=== PATIENT | female | born 1935 | race Caucasian/White ===

== ENCOUNTER 2017-08-09 18:53 | Emergency (ER) | payer OTHER, MEDICARE ==
[2017-08-09 19:04] VITALS: PULSE 73; BMI 32.0
--- NOTE | 2017-08-09 19:35 | PDOC ---
History of Present Illness - General History Source: Patient Exam Limitations: No Limitations - History of Present Illness Initial Comments: 08/09/17 20:04 The patient is a 82-year-old female BIBA with a significant past medical history of HLD, COPD, hypothyroidism, and Alzheimers, who presents to the emergency department with generalized weakness and altered mental status for the last few weeks. The patient lives at home and presents with her daughter and home health aide. Daughter states that patient has been more somnolent than baseline for the last few weeks, and was unresponsive tonight. Daughter reports that they can usually get the patient up and out of the house, but has been unable to do so recently. She also reports she saw her hand shaking tonight and became concerned. History is limited and obtained through medical records and daughters reports, as the patient is unresponsive to commands upon interview. Denies fever, chills, nausea, vomit, diarrhea. Denies chest pain, shortness of breath, dizziness, or urinary changes. Allergies: penicillins Social History: former smoker PCP: Dr. Sweeney <Suzan Stiles - Last Filed: 08/09/17 22:57> <Rachelle Carrillo - Last Filed: 08/10/17 06:24> - General Chief Complaint: Altered Mental Status Stated Complaint: Lethargy Time Seen by Provider: 08/09/17 19:34 Past History <Suzan Stiles - Last Filed: 08/09/17 22:57> - Past Medical History COPD: Yes Dementia: Yes (alzheimers) Hypercholesterolemia: Yes - Suicide/Smoking/Psychosocial Hx Smoking History: Former smoker Have you smoked in the past 12 months: No If you are a former smoker, when did you quit?: many years ago Information on smoking cessation initiated: No Hx Alcohol Use: No Drug/Substance Use Hx: No Substance Use Type: None <Rachelle Carrillo - Last Filed: 08/10/17 06:24> - Past Medical History Allergies/Adverse Reactions: Allergies Allergy/AdvReac Type Severity Reaction Status Date / Time Penicillins Allergy Verified 09/20/16 13:07 Home Medications: Ambulatory Orders Levetiracetam 750 mg PO BID 06/18/15 Divalproex [Depakote -] 125 mg PO BID 08/09/17 Escitalopram Oxalate [Lexapro -] 10 mg PO DAILY 08/09/17 Levothyroxine [Synthroid -] 75 mcg PO DAILY 08/09/17 Quetiapine Fumarate [Seroquel -] 50 mg PO BID 08/09/17 Sennosides [Senna] 8.6 mg PO DAILY 08/09/17 Review of Systems - Review of Systems Able to Perform ROS?: No (unresponsive to commands) <Suzan Stiles - Last Filed: 08/09/17 22:57> *Physical Exam - Vital Signs Last Vital Signs Temp Pulse Resp BP Pulse Ox 73 20 144/60 93 L 08/09/17 19:02 08/09/17 19:02 08/09/17 19:02 08/09/17 19:02 - Physical Exam Comments: 08/09/17 20:04 GENERAL: Not responding to commands, eyes are closed, in no acute distress. Afebrile. HEAD: No signs of trauma EYES: PERRLA, EOMI, sclera anicteric, conjunctiva clear ENT: Auricles normal inspection, hearing grossly normal, nares patent, Moist mucosa NECK: Normal ROM, supple, no lymphadenopathy, JVD, or masses HEART: Regular rate and rhythm, normal S1 and S2, no murmurs, rubs or gallops ABDOMEN: Soft, nontender, normoactive bowel sounds. No guarding, no rebound. No masses EXTREMITIES: No pitting edema. Good peripheral pulses. No clubbing or cyanosis. No cords, erythema, or tenderness. (+) Muscles are stiff. NEUROLOGICAL: Cranial nerves II through XII grossly intact. SKIN: Warm, Dry, normal turgor, no rashes or lesions noted. <Suzan Stiles - Last Filed: 08/09/17 22:57> - Vital Signs Last Vital Signs Temp Pulse Resp BP Pulse Ox 73 20 144/60 93 L 08/09/17 19:02 08/09/17 19:02 08/09/17 19:02 08/09/17 19:02 <Rachelel Carrillo - Last Filed: 08/10/17 06:24> ED Treatment Course - LABORATORY CBC & Chemistry Diagram: 08/09/17 Unknown 08/09/17 Unknown - RADIOLOGY Radiograph Interpretation: 08/09/17 22:58 Patient Name: KANWAL BRAND THIS IS A PRELIMINARY REPORT FROM [facility] DATE OF SERVICE: 2017-08-09 21:12:43 IMAGES: 294 EXAM: CT head without contrast HISTORY: Lethargic COMPARISON: None. FINDINGS: 1. There is no evidence of an acute intracranial process, intracranial hemorrhage or mass effect. 2. Ventricular size is concordant with the degree of atrophy. 3. The visualized portions of the orbits, paranasal and mastoid sinuses are unremarkable. <Suzan Stiles - Last Filed: 08/09/17 22:57> - LABORATORY CBC & Chemistry Diagram: 08/09/17 Unknown 08/09/17 Unknown <Rachelle Carrillo - Last Filed: 08/10/17 06:24> Medical Decision Making - Medical Decision Making 08/10/17 01:26 Patient Name: KANWAL BRAND THIS IS A PRELIMINARY REPORT FROM [facility] DATE OF SERVICE: 2017-08-09 19:46:22 IMAGES: 2 EXAM: XR CHEST single view HISTORY: Cough and weakness COMPARISON: None. FINDINGS: Heart and mediastinal contours: Normal Lungs: Clear with no areas of consolidation Pleura: No pneumothorax or pleural effusion Chest Wall: Normal 08/10/17 06:20 Labs normal; TSH, depakote level, chemistry and cbc all normal. Pt has a clear CXR; pt had elevated mono; monoscreen sent. WIll not return until tomorrow or day after. Pt's PM Zahra will follow her in the office I spoke to Jhoana regarding the patient; he agrees that pt is stable to go home with daughter and HHAide <Rachelle Carrillo - Last Filed: 08/10/17 06:24> *DC/Admit/Observation/Transfer - Attestations Scribe Attestion: 08/09/17 20:05 Documentation prepared by Suzan Stiles, acting as medical supervisor for Rachelle Carrillo MD/DO. <Suzan Stiles - Last Filed: 08/09/17 22:57> - Discharge Dispostion Admit: No <Rachelle Carrillo - Last Filed: 08/10/17 06:24> Diagnosis at time of Disposition: Generalized weakness - Discharge Dispostion Disposition: HOME Condition at time of disposition: Stable - Referrals Referrals: Cruz Sweeney MD [Primary Care Provider] - - Patient Instructions Printed Discharge Instructions: DI for Fatigue, Alzheimer's Disease: Tips for Caretakers, DI for Muscle Weakness
[2017-08-09 20:23] LABS: BASOPHIL 1.1 % (0-2.0); EOSINOPHIL 2.2 % (0-4.5); MEAN CELL VOLUME 90.8 fl (80-96); MEAN PLT VOLUME 8.3 fl (7.5-11.1); NEUTROPHILS 53.6 % (42.8-82.8); PLATELET COUNT 265 K/MM3 (134-434); RDW 14.7 % (11.6-15.6); WHITE BLOOD COUNT 5.3 K/mm3 (4.0-10.0)
[2017-08-09 20:53] LABS: ALBUMIN 3.1 g/dl (3.4-5.0); ANION GAP 6 (8-16); CALCIUM 8.9 mg/dL (8.5-10.1); CO2 29 mmol/L (21-32); CREATININE 0.6 mg/dL (0.55-1.02); GLUCOSE,RANDOM 95 mg/dL (74-106); SGOT/AST 13 U/L (15-37); SGPT/ALT 12 U/L (12-78)
[2017-08-09 20:55] LABS: ALK PHOS 48 U/L (45-117); BILIRUBIN,TOTAL 0.5 mg/dL (0.2-1.0); TOT PROT 6.5 g/dl (6.4-8.2)
[2017-08-09 22:44] LABS: URINE APPEARANCE CLEAR; URINE BILIRUBIN NEGATIVE (NEGATIVE); URINE BLOOD NEGATIVE (NEGATIVE); URINE COLOR DKYELLOW; URINE GLUCOSE (UA) NEGATIVE (NEGATIVE); URINE KETONE NEGATIVE (NEGATIVE); URINE NITRITE NEGATIVE (NEGATIVE); URINE PROTEIN NEGATIVE (NEGATIVE)
[2017-08-10] VITALS: BP 121/70
[2017-08-10] MEDS ORDERED: ALBUTEROL SO4 2.5/IPRATROPIUM 0.5 INH SOL 3 ML VIAL.NEB. NEB ONE (00:30)
[2017-08-10] MEDS ORDERED: FLU VACCINE QUAD 60 MCG/0.5 ML (MDV 17-18) IM ONE (02:36)
[2017-08-10 16:41] LABS: URINE LEUK ESTERASE Negative (NEGATIVE)
--- NOTE | 2017-08-11 17:34 | PDOC ---
Patient Follow-up (Call Back) - Post ED Follow - Up Condition at time of discharge: Stable Disposition at time of original discharge: HOME Reason for Call Back: Abnwl. Microbiology (gram positive cocci in clusters anaerobic bottle, pending organism. awaiting the final report.)
--- NOTE | 2017-08-12 11:38 | EKG ---
Test Reason : Blood Pressure : / mmHG Vent. Rate : 081 BPM Atrial Rate : 081 BPM P-R Int : 146 ms QRS Dur : 128 ms QT Int : 400 ms P-R-T Axes : 036 051 019 degrees QTc Int : 464 ms POOR DATA QUALITY, INTERPRETATION MAY BE ADVERSELY AFFECTED NORMAL SINUS RHYTHM RIGHT BUNDLE BRANCH BLOCK CANNOT RULE OUT INFERIOR INFARCT , AGE UNDETERMINED ABNORMAL ECG WHEN COMPARED WITH ECG OF 18-JUN-2015 18:53, MINIMAL CRITERIA FOR INFERIOR INFARCT ARE NOW PRESENT Confirmed by REI PETERS, MANI ([id number]) on 08/12/2017 11:38:28 AM Referred By: Confirmed By:MANI MINAYA MD
--- NOTE | 2017-08-13 08:09 | PDOC ---
Patient Follow-up (Call Back) - Post ED Follow - Up Condition at time of discharge: Stable Disposition at time of original discharge: HOME Reason for Call Back: Abnwl. Microbiology (Patient's blood culture preliminary shows staphylococcal coagulase negative. will await final report.)
== END 2017-08-10 02:54 | disposition home or self-care (01) ==
LOC: JER 18:53
PROC: 3E0F7GC Introduction of Other Therapeutic Substance into Respiratory Tract, Via Natural or Artificial Opening (ICD-10-PCS; principal; 2017-08-09)
PROC: 3E0234Z Introduction of Serum, Toxoid and Vaccine into Muscle, Percutaneous Approach (ICD-10-PCS; 2017-08-09)
DX: R53.1 Weakness (principal); E03.9 Hypothyroidism, unspecified; J44.9 Chronic obstructive pulmonary disease, unspecified; E78.00 Pure hypercholesterolemia, unspecified; G30.9 Alzheimer's disease, unspecified; F02.80 Dementia in other diseases classified elsewhere, unspecified severity, without behavioral disturbance, psychotic disturbance, mood disturbance, and anxiety; Z87.891 Personal history of nicotine dependence
CPT/HCPCS: 36415; 70450-TC; 71010-TC; 80053; 80164; 81003; 84443; 85025; 86308; 87040; 87086; 90471; 90688; 93005; 93010; 94640; 99283-25

== ENCOUNTER 2017-08-27 18:35 | Inpatient (IN) | payer OTHER, MEDICARE ==
--- NOTE | 2017-08-27 19:15 | PDOC ---
History of Present Illness - History of Present Illness Initial Comments: 08/27/17 21:05 The patient is an 82 year old female, with a significant past medical history of stage Alzheimer's and hypothyroidism, who was BIBA to the emergency department for fluid-filled boil on her right forearm. Patient came in with daughter who wanted her mother to become evaluated for placement since its getting more difficult for her to be cared for at home. She was recently here on 08/06 for being unresponsive to verbal commands, but it was found to be due to her deteriorating mental condition. Patients daughter also states that her mother is no longer able to ambulate to the bathroom with assistance and is wearing diapers. She is currently bed-bound. Her daughter was told by her moms aide that she noticed a fluid-filled boil on her right forearm. She denies recent fevers, chills, headache or dizziness. She denies recent nausea, vomit, diarrhea or constipation. She denies recent dysuria, frequency, urgency or hematuria. She denies recent chest pain or shortness of breath. Allergies: penicillins Past surgical history: None reported. Social history: Nonsmoker. Denies EtOH use and recreational drug use. Primary Care Physician: Cruz Sweeney <Elen Wright - Last Filed: 08/27/17 22:19> <Gregoria Delgadillo - Last Filed: 08/27/17 23:00> - General Chief Complaint: Abscess Boil Stated Complaint: INFECTION Time Seen by Provider: 08/27/17 18:44 Past History <Elen Wright - Last Filed: 08/27/17 22:19> - Past Medical History COPD: Yes Dementia: Yes (alzheimers) Hypercholesterolemia: Yes - Suicide/Smoking/Psychosocial Hx Smoking History: Former smoker Have you smoked in the past 12 months: No If you are a former smoker, when did you quit?: many years ago Information on smoking cessation initiated: No Hx Alcohol Use: No Drug/Substance Use Hx: No Substance Use Type: None <Gregoria Delgadillo - Last Filed: 08/27/17 23:00> - Past Medical History Allergies/Adverse Reactions: Allergies Allergy/AdvReac Type Severity Reaction Status Date / Time Penicillins Allergy Verified 09/20/16 13:07 Home Medications: Ambulatory Orders Levetiracetam 750 mg PO BID 06/18/15 Divalproex [Depakote -] 125 mg PO BID 08/09/17 Escitalopram Oxalate [Lexapro -] 10 mg PO DAILY 08/09/17 Levothyroxine [Synthroid -] 75 mcg PO DAILY 08/09/17 Quetiapine Fumarate [Seroquel -] 50 mg PO BID 08/09/17 Sennosides [Senna] 8.6 mg PO DAILY 08/09/17 Review of Systems - Review of Systems Able to Perform ROS?: No (limited due to ams) Comments:: 08/27/17 21:05 CONSTITUTIONAL: Absent: fever, chills, diaphoresis, generalized weakness, malaise, loss of appetite HEENT: Absent: rhinorrhea, nasal congestion, throat pain, throat swelling, difficulty swallowing, mouth swelling, ear pain, eye pain, visual Changes CARDIOVASCULAR: Absent: chest pain, syncope, palpitations, irregular heart rate, lightheadedness , peripheral edema RESPIRATORY: Absent: cough, shortness of breath, dyspnea with exertion, orthopnea, wheezing, stridor, hemoptysis GASTROINTESTINAL: Absent: abdominal pain, abdominal distension, nausea, vomiting, diarrhea, constipation, melena, hematochezia GENITOURINARY: Absent: dysuria, frequency, urgency, hesitancy, hematuria, flank pain, genital pain MUSCULOSKELETAL: Absent: myalgia, arthralgia, joint swelling SKIN: Present: fluid-filled boil on right forearm Absent: rash, itching, pallor HEMATOLOGIC/IMMUNOLOGIC: Present: easy bruises Absent: easy bleeding, easy bruising, lymphadenopathy, frequent infections ENDOCRINE: Absent: unexplained weight gain, unexplained weight loss, heat intolerance, cold intolerance NEUROLOGIC: Present: progressive degenerative neurological deficits. Unable to ambulate. Nonverbal. Absent: headache, focal weakness or paresthesias, dizziness, seizure, bladder or bowel incontinence PSYCHIATRIC: Absent: anxiety, depression, suicidal or homicidal ideation, hallucinations. 08/27/17 21:13 <Elen Wright - Last Filed: 08/27/17 22:19> *Physical Exam - Vital Signs Last Vital Signs Temp Pulse Resp BP Pulse Ox 98.1 F 82 16 116/65 93 L 08/27/17 18:55 08/27/17 18:55 08/27/17 18:55 08/27/17 18:55 08/27/17 18:55 - Physical Exam Comments: 08/27/17 21:12 GENERAL: Nonverbal. Well developed, well nourished. Awake and alert. No acute distress. HEENT: Normocephalic, atraumatic. PERRLA, EOMI. No conjunctival pallor. Sclera are non- icteric. Moist mucous membranes. Oropharynx is clear. NECK: Supple. Full ROM. No JVD. Carotid pulses 2+ and symmetric, without bruits. No thyromegaly. No lymphadenopathy. CARDIOVASCULAR: Regular rate and rhythm. No murmurs, rubs, or gallops. Distal pulses are 2+ and symmetric. PULMONARY: Fine basal rales. No evidence of respiratory distress. No wheezing, or rhonchi. ABDOMINAL: Soft. Non-tender. Non-distended. No rebound or guarding. No organomegaly. Normoactive bowel sounds. MUSCULOSKELETAL Normal range of motion at all joints. No bony deformities or tenderness. No CVA tenderness. EXTREMITIES: 2 fluid-filled caro on right forearm. Rash on right forearm. Old bruises on lower extremities. No cyanosis. No clubbing. No edema. No calf tenderness. SKIN: Warm and dry. Normal capillary refill. No rashes. No jaundice. NEUROLOGICAL: Nonverbal. Bedbound. Unable to ambulate. Progressive degenerative neurological deficits from Alzeimer's. PSYCHIATRIC: Cooperative. Good eye contact. Appropriate mood and affect. <Elen Wright - Last Filed: 08/27/17 22:19> - Vital Signs Last Vital Signs Temp Pulse Resp BP Pulse Ox 98.1 F 82 16 116/65 93 L 08/27/17 18:55 08/27/17 18:55 08/27/17 18:55 08/27/17 18:55 08/27/17 18:55 <Gregoria Delgadillo - Last Filed: 08/27/17 23:00> Heart Score/ECG Review - ECG Intrepretation Comment:: 08/27/17 20:04:21 EKG Interpretation: Normal sinus rhythm Right bundle branch blocl Abnormal ECG Vent rate: 81 bpm <Elen Wright - Last Filed: 08/27/17 22:19> ED Treatment Course - LABORATORY CBC & Chemistry Diagram: 08/27/17 19:42 08/27/17 19:42 - ADDITIONAL ORDERS Additional order review: Laboratory Results 08/27/17 08/27/17 19:42 19:42 PT with INR 11.70 INR 1.04 PTT (Actin FS) 31.8 Sodium 142 Potassium 4.2 Chloride 106 Carbon Dioxide 29 Anion Gap 7 L BUN 10 Creatinine 0.7 Creat Clearance w eGFR > 60 Random Glucose 105 Calcium 8.8 Total Bilirubin 0.4 AST 18 D ALT 23 D Alkaline Phosphatase 56 Total Protein 6.3 L Albumin 2.8 L 08/27/17 19:42 RBC 4.83 MCV 91.8 MCHC 32.3 RDW 14.5 MPV 8.0 Neutrophils % 50.6 Lymphocytes % 32.5 Monocytes % 14.2 H Eosinophils % 1.8 Basophils % 0.9 <Elen Wright - Last Filed: 08/27/17 22:19> - LABORATORY CBC & Chemistry Diagram: 08/27/17 19:42 08/27/17 19:42 <Gregoria Delgadillo - Last Filed: 08/27/17 23:00> *DC/Admit/Observation/Transfer - Attestations Scribe Attestion: 08/27/17 21:21 Documentation prepared by Elen Wright, acting as biomedical analytical scientist for Gregoria Delgadillo MD. <Elen Wright - Last Filed: 08/27/17 22:19> - Discharge Dispostion Admit: Yes <Gregoria Delgadillo - Last Filed: 08/27/17 23:00> Diagnosis at time of Disposition: Generalized weakness, Cannot walk UTI (urinary tract infection) Qualifiers: Urinary tract infection type: site unspecified Hematuria presence: without hematuria Qualified Code(s): N39.0 - Urinary tract infection, site not specified Dementia Qualifiers: Dementia type: unspecified type Dementia behavioral disturbance: without behavioral disturbance Qualified Code(s): F03.90 - Unspecified dementia without behavioral disturbance Urinary bladder incontinence Qualifiers: Urinary Incontinence type: unspecified incontinence Qualified Code(s): R32 - Unspecified urinary incontinence - Referrals Referrals: Cruz Sweeney MD [Primary Care Provider] - - Patient Instructions - Post Discharge Activity
[2017-08-27 20:11] LABS: BASOPHIL 0.9 % (0-2.0); EOSINOPHIL 1.8 % (0-4.5); MCH 29.6 pg (25.7-33.7); MCHC 32.3 g/dl (32.0-36.0); MEAN CELL VOLUME 91.8 fl (80-96); NEUTROPHILS 50.6 % (42.8-82.8); PLATELET COUNT 310 K/MM3 (134-434); RDW 14.5 % (11.6-15.6); WHITE BLOOD COUNT 5.7 K/mm3 (4.0-10.0)
[2017-08-27 20:32] LABS: INR 1.04 (0.82-1.09); PROTHROMBIN TIME (PATIENT) 11.7 SEC (9.98-11.88)
[2017-08-27 20:35] LABS: ACTIVATED PTT 31.8 SECONDS (26.9-34.4)
[2017-08-27 20:42] LABS: ALBUMIN 2.8 g/dl (3.4-5.0); ANION GAP 7 (8-16); CALCIUM 8.8 mg/dL (8.5-10.1); CO2 29 mmol/L (21-32); CREATININE 0.7 mg/dL (0.55-1.02); GLUCOSE,RANDOM 105 mg/dL (74-106); SGOT/AST 18 U/L (15-37)
[2017-08-27 20:44] LABS: ALK PHOS 56 U/L (45-117); BILIRUBIN,TOTAL 0.4 mg/dL (0.2-1.0); SGPT/ALT 23 U/L (12-78); TOT PROT 6.3 g/dl (6.4-8.2)
[2017-08-27 21:28] LABS: URINE APPEARANCE CLOUDY; URINE BILIRUBIN NEGATIVE (NEGATIVE); URINE BLOOD NEGATIVE (NEGATIVE); URINE COLOR AMBER; URINE GLUCOSE (UA) NEGATIVE (NEGATIVE); URINE KETONE TRACE (NEGATIVE); URINE NITRITE NEGATIVE (NEGATIVE)
[2017-08-27 21:30] LABS: URINE PROTEIN 1+ (NEGATIVE)
[2017-08-27 21:32] LABS: URINE BACTERIA RARE /hpf (NONE SEEN); URINE MUCUS MANY; URINE RBC 4 /hpf (0-3); URINE WBC 11 /hpf (3-5); YEAST FEW
[2017-08-27 22:39] LABS: URINE LEUK ESTERASE TRACE (NEGATIVE)
[2017-08-28 03:55] VITALS: BMI 23.8
[2017-08-28] MEDS ORDERED: ACETAMINOPHEN 325 MG TABLET (FP) PO PRN (06:19)
[2017-08-28] MEDS: LEVOFLOXACIN 250 MG IVPB 250 MG/50 ML MG IVPB SCH (06:56)
[2017-08-28] MEDS: LEVOTHYROXINE NA 75 MCG TABLET (FP) PO SCH (06:58)
[2017-08-28 08:46] LABS: THYROID STIMULATING HORMONE 5.24 uIU/ml (0.358-3.74)
--- NOTE | 2017-08-28 10:23 | EKG ---
Test Reason : Blood Pressure : / mmHG Vent. Rate : 081 BPM Atrial Rate : 081 BPM P-R Int : 130 ms QRS Dur : 126 ms QT Int : 412 ms P-R-T Axes : 036 058 058 degrees QTc Int : 478 ms POOR DATA QUALITY, INTERPRETATION MAY BE ADVERSELY AFFECTED NORMAL SINUS RHYTHM RIGHT BUNDLE BRANCH BLOCK ABNORMAL ECG WHEN COMPARED WITH ECG OF 09-AUG-2017 21:45, MINIMAL CRITERIA FOR INFERIOR INFARCT ARE NO LONGER PRESENT Confirmed by MANI MINAYA MD ([id number]) on 08/28/2017 10:23:00 AM Referred By: Confirmed By:MANI MINAYA MD
[2017-08-28] MEDS: QUEtiapine FUMARATE 50 MG TABLET PO SCH ×2 (11:04→22:04)
[2017-08-28] MEDS: ESCITALOPRAM OXALATE 10 MG TABLET (FP) PO SCH (11:04)
[2017-08-28] MEDS: HEPARIN NA (PORCINE) 5,000 UNITS/ML 1ML VIAL SQ SCH ×2 (11:04→22:05)
[2017-08-28] MEDS: levETIRAcetam 250 MG TABLET (FP) PO SCH ×2 (11:04→22:05)
[2017-08-28] MEDS: DIVALPROEX SODIUM 125 MG TABLET E.C. (FP) PO SCH ×2 (11:05→22:04)
--- NOTE | 2017-08-28 11:31 | HP ---
Admitting History and Physical - Primary Care Physician PCP: Cruz Sweeney - Admission Chief Complaint: WORSENING DEMENTIA/ALTERED METAL STATUS/CELLULITIS RIGHT FOREARM History of Present Illness: The patient is an 82 year old female, with a significant past medical history of stage Alzheimer's and hypothyroidism, who was BIBA to the emergency department for fluid-filled boil on her right forearm. Patient came in with daughter who wanted her mother to become evaluated for placement since its getting more difficult for her to be cared for at home. She was recently here on 08/06 for being unresponsive to verbal commands, but it was found to be due to her deteriorating mental condition. Patients daughter also states that her mother is no longer able to ambulate to the bathroom with assistance and is wearing diapers. She is currently bed-bound. Her daughter was told by her moms aide that she noticed a fluid-filled boil on her right forearm. 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 - Smoking History Smoking history: Former smoker Have you smoked in the past 12 months: No If you are a former smoker, when did you quit?: many years ago - Alcohol/Substance Use Hx Alcohol Use: No Home Medications - Allergies Allergies/Adverse Reactions: Allergies Allergy/AdvReac Type Severity Reaction Status Date / Time Penicillins Allergy Verified 09/20/16 13:07 - Home Medications Home Medications: Ambulatory Orders Levetiracetam 750 mg PO BID 06/18/15 Divalproex [Depakote -] 125 mg PO BID 08/09/17 Escitalopram Oxalate [Lexapro -] 10 mg PO DAILY 08/09/17 Levothyroxine [Synthroid -] 75 mcg PO DAILY 08/09/17 Quetiapine Fumarate [Seroquel -] 50 mg PO BID 08/09/17 Sennosides [Senna] 8.6 mg PO DAILY 08/09/17 Review of Systems - Review of Systems Constitutional: reports: Lethargy, Loss of Appetite, Weakness Eyes: reports: Eye Pain, Other HENT: reports: No Symptoms Neck: reports: No Symptoms Cardiovascular: reports: No Symptoms Respiratory: reports: No Symptoms Gastrointestinal: reports: No Symptoms Genitourinary: reports: Incontinence Musculoskeletal: reports: Muscle Weakness Integumentary: reports: Other Neurological: reports: Pre-Existing Deficit, Weakness Endocrine: reports: No Symptoms Hematology/Lymphatic: reports: No Symptoms Psychiatric: reports: Other Physical Examination Vital Signs: Vital Signs Temperature 98.2 F 08/28/17 10:59 Pulse Rate 79 08/28/17 10:59 Respiratory Rate 18 08/28/17 10:59 Blood Pressure 135/76 08/28/17 10:59 O2 Sat by Pulse Oximetry (%) 93 L 08/28/17 03:49 Constitutional: Yes: Severe Distress Eyes: Yes: Other (RIGHT ERYTHEMA) HENT: Yes: WNL Neck: Yes: WNL Cardiovascular: Yes: WNL Respiratory: Yes: WNL Gastrointestinal: Yes: WNL Renal/: Yes: Other Musculoskeletal: Yes: Muscle Weakness Extremities: Yes: Other Edema: No Peripheral Pulses WNL: Yes Integumentary: Yes: Erythema, Pressure Ulcer Wound/Incision: Yes: Dressing Removed (RIGT FOREARM ERYTHEMA WITH BLISTERS) Neurological: Yes: Pre-Existing Deficit, Unresponsive ...Motor Strength: LLE, RLE Psychiatric: Yes: Other Labs: CBC, BMP 08/27/17 19:42 08/27/17 19:42 Problem List - Problems (1) Cellulitis Code(s): L03.90 - CELLULITIS, UNSPECIFIED Qualifiers: Site of cellulitis of extremity: upper extremity Laterality: right (2) Cannot walk Code(s): R26.2 - DIFFICULTY IN WALKING, NOT ELSEWHERE CLASSIFIED (3) Dementia Code(s): F03.90 - UNSPECIFIED DEMENTIA WITHOUT BEHAVIORAL DISTURBANCE Qualifiers: Dementia type: unspecified type Dementia behavioral disturbance: without behavioral disturbance Qualified Code(s): F03.90 - Unspecified dementia without behavioral disturbance (4) Generalized weakness Code(s): R53.1 - WEAKNESS Assessment/Plan IV ABX SILVADENE CREA RIGHT FOREAR RECOMMEND [facility] AT THIS POINT FOR WORSENING DEMENTIA AD UNABLE TO CARE FOR HERSELF REQUIRING 24 HOUR CARE
[2017-08-28] MEDS: SILVER SULFADIAZINE 1% TOP CREAM 50 GM JAR TP SCH (13:44)
--- NOTE | 2017-08-28 18:49 | CONSULT ---
Consult - text type - Consultation Consultation Note: NEUROLOGY CONSULTATION is greatly appreciated: Events reviewed, patient examined. This 82 yo woman with hypothyroidism- on L-thyroxin carries Dx of advanced Alzheimer's disease (AD) and is maintained on depakote (125 BID);Keppra (750 BID ): Lexapro (10 qd) and Quetiapine (50 BID). Admitted after few days of decline in function including loss of ability to transfer with daughter and HHAide and cutaneous infection (Abscess on her forearm). Now on Levaquin. TSH= 5.24; L53=574 pg%; VPA level= 48.6 ug%. KAVITHA: Neck rigid in all directions. Neg Kernig. Swelling R forearm. No bruits. Cor reg NEURO: Rests with eyes closed but is awake. Follows no commands. No speech. + Glabella, snout, suck, grasps and palmomentals. Diffusely rigid tone scattered Myoclonic jerks. Normal arm reflexes. areflexic in the legs. Plantars silent. withdraws all fours to pinch. All findings are symmetrical IMP: Severe, B/L cerebral dysfunction (OMS/chronic) c/w advanced Alzheimer's Disease. No focality to sugget CVA. Toxic-metabolic encephalopthy due to the infection may explain subacute worsening. Suggest: Continue antibiotics and hydration. Query history of seizure disorder? Continue levetiracetam and valproic acid for now. Doubt efficacy of Lexapro Rx. Would taper to 5 mg x 1 month and D/ C. Decrease quetiapine to 50 q HS and hold for lethargy. Although Pt. may improve slightly with Rx of infection, she will likely still require SNF level of care. Thank you very much, Bob Díaz MD
[2017-08-29] MEDS: MOXIFLOXACIN HCL 0.5% OPHTHALMIC 3 ML BOTTLE OD SCH ×4 (00:35→21:36)
[2017-08-29] MEDS: LEVOTHYROXINE NA 75 MCG TABLET (FP) PO SCH (06:16)
[2017-08-29 07:31] LABS: BASOPHIL 0.6 % (0-2.0); EOSINOPHIL 3.3 % (0-4.5); MCH 30.1 pg (25.7-33.7); MCHC 32.6 g/dl (32.0-36.0); MEAN CELL VOLUME 92.2 fl (80-96); MEAN PLT VOLUME 7.9 fl (7.5-11.1); NEUTROPHILS 47.5 % (42.8-82.8); PLATELET COUNT 292 K/MM3 (134-434); RDW 14.3 % (11.6-15.6); WHITE BLOOD COUNT 5.5 K/mm3 (4.0-10.0)
[2017-08-29 08:23] LABS: ALBUMIN 2.5 g/dl (3.4-5.0); ALK PHOS 48 U/L (45-117); ANION GAP 6 (8-16); BILIRUBIN,TOTAL 0.6 mg/dL (0.2-1.0); CALCIUM 8.3 mg/dL (8.5-10.1); CO2 28 mmol/L (21-32); CREATININE 0.7 mg/dL (0.55-1.02); GLUCOSE,RANDOM 79 mg/dL (74-106); SGOT/AST 12 U/L (15-37); SGPT/ALT 17 U/L (12-78); TOT PROT 5.7 g/dl (6.4-8.2)
[2017-08-29] MEDS ORDERED: PT OWN MED DRAWER 7, Y5N ONE (10:09)
[2017-08-29] MEDS: HEPARIN NA (PORCINE) 5,000 UNITS/ML 1ML VIAL SQ SCH ×2 (10:43→21:35)
[2017-08-29] MEDS: ESCITALOPRAM OXALATE 10 MG TABLET (FP) PO SCH (10:43)
[2017-08-29] MEDS: levETIRAcetam 250 MG TABLET (FP) PO SCH ×2 (10:43→21:35)
[2017-08-29] MEDS: QUEtiapine FUMARATE 50 MG TABLET PO SCH ×2 (10:43→21:35)
[2017-08-29] MEDS: LEVOFLOXACIN 250 MG IVPB 250 MG/50 ML MG IVPB SCH (10:43)
[2017-08-29] MEDS: DIVALPROEX SODIUM 125 MG TABLET E.C. (FP) PO SCH ×2 (10:44→21:36)
[2017-08-29] MEDS: SILVER SULFADIAZINE 1% TOP CREAM 50 GM JAR TP SCH (10:45)
--- NOTE | 2017-08-29 10:45 | PN ---
Progress Note, Physician Chief Complaint: ASLEEP COMFORTABLE - Current Medication List Current Medications: Active Medications Acetaminophen (Tylenol -) 650 mg PO Q4H PRN PRN Reason: FEVER OR PAIN Divalproex Sodium (Depakote -) 125 mg PO BID [facility] Last Admin: 08/28/17 22:04 Dose: 125 mg Escitalopram Oxalate (Lexapro -) 10 mg PO DAILY [facility] Last Admin: 08/28/17 11:04 Dose: 10 mg Heparin Sodium (Porcine) (Heparin -) 5,000 unit SQ BID [facility] Last Admin: 08/28/17 22:05 Dose: 5,000 unit Levofloxacin (Levaquin 250 Mg Premixed Ivpb -) 250 mg in 50 mls @ 50 mls/hr IVPB DAILY [facility] Last Admin: 08/28/17 06:56 Dose: 50 mls/hr Levetiracetam (Keppra -) 750 mg PO BID [facility] Last Admin: 08/28/17 22:05 Dose: 750 mg Levothyroxine Sodium (Synthroid -) 75 mcg PO DAILY@0700 [facility] Last Admin: 08/29/17 06:16 Dose: 75 mcg Moxifloxacin HCl (Vigamox 0.5% Eye Drops -) 1 drop OD TID [facility] Last Admin: 08/29/17 06:16 Dose: 1 drop Quetiapine Fumarate (Seroquel -) 50 mg PO BID [facility] Last Admin: 08/28/17 22:04 Dose: 50 mg Silver Sulfadiazine (Silvadene -) 1 applic TP DAILY [facility] Last Admin: 08/28/17 13:44 Dose: 1 applic - Objective Vital Signs: Vital Signs Temperature 97.5 F L 08/29/17 06:00 Pulse Rate 72 08/29/17 06:00 Respiratory Rate 18 08/29/17 06:00 Blood Pressure 114/55 08/29/17 06:00 O2 Sat by Pulse Oximetry (%) 93 L 08/28/17 21:00 Constitutional: Yes: No Distress Eyes: Yes: WNL HENT: Yes: WNL Neck: Yes: WNL Cardiovascular: Yes: WNL Respiratory: Yes: WNL Gastrointestinal: Yes: WNL Genitourinary: Yes: WNL Musculoskeletal: Yes: Muscle Weakness Extremities: Yes: Erythema Edema: No Peripheral Pulses WNL: Yes Integumentary: Yes: Pressure Ulcer Wound/Incision: Yes: Open to air, Excoriated Neurological: Yes: Pre-Existing Deficit, Unresponsive ...Motor Strength: LLE, RLE Psychiatric: Yes: Other Labs: CBC, BMP 08/29/17 07:05 08/29/17 07:05 INR, PTT INR 1.04 (0.82-1.09) 08/27/17 19:42 Problem List - Problems (1) Cellulitis Code(s): L03.90 - CELLULITIS, UNSPECIFIED Qualifiers: Site of cellulitis of extremity: upper extremity Laterality: right (2) Cannot walk Code(s): R26.2 - DIFFICULTY IN WALKING, NOT ELSEWHERE CLASSIFIED (3) Dementia Code(s): F03.90 - UNSPECIFIED DEMENTIA WITHOUT BEHAVIORAL DISTURBANCE Qualifiers: Dementia type: unspecified type Dementia behavioral disturbance: without behavioral disturbance Qualified Code(s): F03.90 - Unspecified dementia without behavioral disturbance (4) Generalized weakness Code(s): R53.1 - WEAKNESS Assessment/Plan TOXIC METABOLIC ENCEPHALOPATHY ALZHEIMERS DISEASE CELLULITIS RIGHT FOREARM IV ABX NEUROLOGY 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 PER FAMILY. POOR OVERALL QUALITY OF LIFE PATIENT IS DNR/DNI AND HAS TOLD THE FAMILY MULTIPLE TIMES OVER THE YEARS SHE DOES NOT WANT TO SUFFER IN BED OR BE IN A GROUP HOME FOR A LONG TIME. FAMILY OPTING FOR HOSPICE END OF LIFE CARE.
--- NOTE | 2017-08-29 16:58 | PN ---
Progress Note (short form) - Note Progress Note: Vascular Surgery Pt seen and examined with family at bedside. Right wrist blister -- place silvadene to area daily. Family does not want me to turn pt to see stage 2 sacral ulcers. continue optifoam to area offload. Bruce Garcia DO
--- NOTE | 2017-08-30 05:54 | PN ---
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 REQUIRING FULL ASSISTANCE WITH ADLS DAILY ACTIVITIES Problem List - Problems (1) Cellulitis Code(s): L03.90 - CELLULITIS, UNSPECIFIED Qualifiers: Site of cellulitis of extremity: upper extremity Laterality: right (2) Cannot walk Code(s): R26.2 - DIFFICULTY IN WALKING, NOT ELSEWHERE CLASSIFIED (3) Dementia Code(s): F03.90 - UNSPECIFIED DEMENTIA WITHOUT BEHAVIORAL DISTURBANCE Qualifiers: Dementia type: unspecified type Dementia behavioral disturbance: without behavioral disturbance Qualified Code(s): F03.90 - Unspecified dementia without behavioral disturbance (4) Generalized weakness Code(s): R53.1 - WEAKNESS
[2017-08-30] MEDS: LEVOTHYROXINE NA 75 MCG TABLET (FP) PO SCH (06:03)
[2017-08-30] MEDS: MOXIFLOXACIN HCL 0.5% OPHTHALMIC 3 ML BOTTLE OD SCH (06:03)
--- NOTE | 2017-08-30 09:27 | DS ---
Physical Examination Vital Signs: Vital Signs Temperature 98.1 F 08/30/17 06:13 Pulse Rate 78 08/30/17 06:13 Respiratory Rate 18 08/30/17 06:13 Blood Pressure 149/79 08/30/17 06:13 O2 Sat by Pulse Oximetry (%) 94 L 08/29/17 21:00 Constitutional: Yes: Mild Distress Eyes: Yes: WNL (EYE ERYTHEMA), Other HENT: Yes: WNL Neck: Yes: WNL Cardiovascular: Yes: WNL Respiratory: Yes: WNL Gastrointestinal: Yes: WNL Renal/: Yes: WNL Musculoskeletal: Yes: WNL Extremities: Yes: WNL Edema: No Peripheral Pulses WNL: Yes Integumentary: Yes: Pressure Ulcer, Rash Wound/Incision: Yes: Dressing Dry and Intact Neurological: Yes: Pre-Existing Deficit ...Motor Strength: LLE, RLE Psychiatric: Yes: Other Labs: CBC, BMP 08/29/17 07:05 08/29/17 07:05 Discharge Summary Reason For Visit: URINARY TRACT INFECTION/URINARY INCONTINENCE Current Active Problems Cannot walk (Acute) Cellulitis (Acute) Dementia (Acute) Generalized weakness (Acute) UTI (urinary tract infection) (Acute) Urinary bladder incontinence (Acute) Procedures: Principal: LABS Hospital Course: ADMITTED FOR IV ABX, WOUND CARE, WORSENING DEMENTIA, POOR APPETITE, FAMILY OPTING FOR HOSPICE CARE Condition: Poor - Instructions Diet, Activity, Other Instructions: TOLERATED PUREE Referrals: Cruz Sweeney MD [Primary Care Provider] - Disposition: TRANSFER ACUTE CARE/OTHER HOSP - Home Medications Comprehensive Discharge Medication List: Ambulatory Orders Levetiracetam 750 mg PO BID 06/18/15 Divalproex [Depakote -] 125 mg PO BID 08/09/17 Escitalopram Oxalate [Lexapro -] 10 mg PO DAILY 08/09/17 Levothyroxine [Synthroid -] 75 mcg PO DAILY 08/09/17 Quetiapine Fumarate [Seroquel -] 50 mg PO BID 08/09/17 Sennosides [Senna] 8.6 mg PO DAILY 08/09/17
[2017-08-30] MEDS ORDERED: PT OWN MED DRAWER 7, Y5N ONE (10:03)
[2017-08-30] MEDS: LEVOFLOXACIN 250 MG IVPB 250 MG/50 ML MG IVPB SCH (10:08)
[2017-08-30] MEDS: HEPARIN NA (PORCINE) 5,000 UNITS/ML 1ML VIAL SQ SCH (10:13)
[2017-08-30] MEDS: ESCITALOPRAM OXALATE 10 MG TABLET (FP) PO SCH (10:16)
[2017-08-30] MEDS: levETIRAcetam 250 MG TABLET (FP) PO SCH (10:17)
[2017-08-30] MEDS: DIVALPROEX SODIUM 125 MG TABLET E.C. (FP) PO SCH (10:17)
[2017-08-30] MEDS: SILVER SULFADIAZINE 1% TOP CREAM 50 GM JAR TP SCH (10:18)
[2017-08-30] MEDS: QUEtiapine FUMARATE 50 MG TABLET PO SCH (10:18)
[2017-08-30 10:30] VITALS: BP 109/50; PULSE 76; TEMP 97.6
== END 2017-08-30 11:10 | disposition hospice, inpatient (51) | DRG 56 ==
LOC: JER 18:35 → JERBED 23:00 → J5S 08-28 02:29
PROVIDERS: ADMIT Family Medicine; ATTEND Family Medicine
DX: G30.8 Other Alzheimer's disease (principal); G93.41 Metabolic encephalopathy; R53.2 Functional quadriplegia; L03.113 Cellulitis of right upper limb; N39.0 Urinary tract infection, site not specified; L02.413 Cutaneous abscess of right upper limb; F02.80 Dementia in other diseases classified elsewhere, unspecified severity, without behavioral disturbance, psychotic disturbance, mood disturbance, and anxiety; E03.9 Hypothyroidism, unspecified; E78.00 Pure hypercholesterolemia, unspecified; R26.2 Difficulty in walking, not elsewhere classified; R53.1 Weakness; B95.4 Other streptococcus as the cause of diseases classified elsewhere; Z87.891 Personal history of nicotine dependence; Z74.01 Bed confinement status
CPT/HCPCS: 36415; 71010-TC; 80053; 80164; 81003; 81015; 82607; 84443; 85025; 85610; 85730; 87040; 87077; 87086; 93005; 93010; 97161-GP; 99283-25; J1644